=== PATIENT | female | born 2005 | race Caucasian/White ===

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

== ENCOUNTER → 2023-05-02 | Outpatient (CLI) | payer OTHER, SELFPAY ==
[2023-05-02 13:33] LABS: Hepatitis B Surface Antibody Non-Reactive; Rubella IgG Reactive (Nonreactive)
[2023-05-03 11:08] LABS: Mumps Antibody,IgG 57.8 AU/mL (Immune >10.9); Rubeola IgG Ab > 300.0 AU/mL (Immune >16.4); V-Zoster IgG (Immunity) < 135 index (Immune >165)
== END | disposition home or self-care (01) ==
PROVIDERS: PCP Family Medicine; Visit Provider Nurse Practitioner Family
DX: Z00.00 Encounter for general adult medical examination without abnormal findings (principal); Z23 Encounter for immunization
CPT/HCPCS: 36415; 86706; 86735; 86762; 86765; 86787

== ENCOUNTER → 2024-10-08 | Outpatient (CLI) | payer MEDICAID, SELFPAY ==
[2024-10-08 15:35] LABS: Absolute Lymphocyte Count 1.85 X10^3/uL (0.83-4.51); Absolute Neutrophil Count 5.4 X10^3/uL (2.0-7.7); Basophil# 0.03 X10^3/uL; Basophil% 0.4 % (0-1); Eosinophil# 0.24 X10^3/uL; Eosinophils% 2.9 % (0-5); Hematocrit 37.9 % (37-47); Hemoglobin 13.1 g/dL (12.0-15.0); Lymphocyte # 1.85 X10^3/ul (0.83-4.51); Lymphocyte % 22.4 % (19-41); Mean Corp Hgb Conc 34.6 g/dL (32-36); Mean Corpuscular Hgb 31.6 pg (27.0-32.0); Mean Corpuscular Volume 91.5 fL (81-99); Mean Platelet Vol. 10.5 fl (6.2-12.0); Monocyte% 7.3 % (0-10); NRBC Flagged by Analyzer 0 % (0-5); Neutrophil # 5.41 X10^3/uL (2.7-7.7); Neutrophil % 65.4 % (47-70); Platelet Count 241 K/mm3 (150-450); RBC Distribution Width CV 12.6 % (11.6-14.6); RBC Distribution Width SD 42.3 fl (35.1-43.9); Red Blood Count 4.14 M/mm3 (4.2-5.4); White Blood Count 8.3 K/mm3 (4.4-11.0)
[2024-10-08 16:16] LABS: Vitamin B12 523 pg/mL (211-911); Vitamin D,25 Hydroxy 25.9 ng/mL
[2024-10-08 16:22] LABS: ALB/GLOB Ratio 1.2 RATIO (0.9-2.4); AST(SGOT) 17 U/L (15-37); Alanine Aminotransfer ALT/SGPT 21 U/L (13-56); Albumin, Serum 4.2 g/dL (3.2-5.0); Alkaline Phosphatase 46 U/L (45-117); Anion Gap 7 (5-15); BUN 10 mg/dL (7-18); BUN/Creat Ratio 12.4 RATIO (10-20); Calcium,Total 9.1 mg/dL (8.5-10.1); Chloride 106 mmol/L (98-107); Cholesterol 166 mg/dL (200); Creatinine, Serum 0.81 mg/dL (0.55-1.02); EST Glomerular Filtration Rate 95 mL/min (>60); Est Glom Filt Rate - Afr Amer 115 mL/min (>60); Globulin 3.4 g/dL (2.2-4.2); Glucose 88 mg/dL (74-106); High Density Lipoprotein 56 mg/dL; Potassium 3.6 mmol/L (3.5-5.1); Protein, Total 7.6 g/dL (6.4-8.2); Sodium Level 137 mmol/L (136-145); T4 Free Direct 1.07 ng/dL (0.76-1.46); Thyroid Stim Hormone (TSH) 0.855 uIU/mL (0.358-3.740); Triglycerides 46 mg/dL; Very Low Density Lipoprotein 9 mg/dL (5-40)
== END | disposition home or self-care (01) ==
LOC: MTLAB 12:36
PROVIDERS: PCP Family Medicine; Referring Provider Nurse Practitioner Family; Visit Provider Nurse Practitioner Family
DX: Z00.01 Encounter for general adult medical examination with abnormal findings (principal); R53.83 Other fatigue
CPT/HCPCS: 36415; 80053; 80061; 82306; 82607; 84439; 84443; 85025

== ENCOUNTER 2024-11-20 18:12 | Emergency (ER) | payer MEDICAID, SELFPAY ==
[2024-11-20 18:13] VITALS: BP 142/95; PULSE 82; RESP 16; TEMP 37.1; O2SAT 99; BMI 25.4
--- NOTE | 2024-11-20 18:31 | EKG12_ITS ---
Test Reason : CP Blood Pressure : */* mmHG Vent. Rate : 84 BPM Atrial Rate : 84 BPM P-R Int : 144 ms QRS Dur : 78 ms QT Int : 384 ms P-R-T Axes : 53 72 46 degrees QTcB Int : 453 ms Normal sinus rhythm Normal ECG Confirmed by Edson Cast ([id number]), advertising editor ANDERS FAIRCHILD ([id number]) on 11/21/2024 9:37:51 AM Referred By: Nash Godfrey Confirmed By: Edson Cast
--- NOTE | 2024-11-20 18:38 | ED.VIS.CHEST ---
HPI History of Present Illness Chief Complaint: Chest Pain Detail of Chief Complaint: Chest pain upon awakening Sunday morning and lasted the entire day Informant: patient Onset/Context/Timing Onset: Today and Days (Sunday morning first episode) Activity at onset: sudden Timing: Intermittent and Lasts (Hours) Quality: Positive for Pressure Location: Substernal Current Severity: Moderate Maximum Severity: Severe Worsened By: Nothing Relieved By: Nothing Associated Symptoms: Positive for Dyspnea and Fever (Subjective); Negative for Nausea, Vomiting, Diaphoresis, Cough, Lightheadedness, Acid Reflux or Palpitations Narrative Narrative: Patient is a 19-year-old female. She is on control pills. She has no significant past medical history. She presents because of chest pain. First episode was Sunday upon awakening and lasted for hours. She had no symptoms on Sunday. Upon awakening this morning she had chest pressure. She does report shortness of breath with activity and today reports pain with breathing. She states she feels she is warmer than usual. She has not taken her temperature. She denies rhinorrhea, congestion, postnasal drainage and sore throat. She denies cough. She has no history of VTE. She denies leg pain, swelling discoloration. Her risk factor is subdermal hormone implant. There is no family history of blood clots. There is no family history of coronary artery disease at young age. Prior Similar Symptoms: No Recent Illness/Hospitalization: No CVD Risk Factors: Negative for Hypertension, Diabetes, Hypercholesterolemia, Family History 1' </=55 or Smoking PE Risk Factors: Negative for Recent Travel/Surgery, Recent Immobilization, Prior DVT or PE, Cancer or OCP + Smoking + >/=35 TAD Risk Factors: Negative for Marfan's Syndrome, Hypertension or Family History PFSH PFSH Medical History no medical history no medical history Home Medications ?Medication ?Instructions ?Recorded ?Last Taken ?Type etonogestrel 68 mg subdermal 1 implant subdermal ONCE 03/27/24 Unknown History implant (Nexplanon) Allergy/AdvReac Type Severity Reaction Status Date / Time No Known Allergies Allergy Verified 11/20/24 18:12 Family History Grandfather Myocardial infarction Grandfather Myocardial infarction Mother Hypertension Father Hypertension Surgical History [place] teeth extracted Hx of tonsillectomy Social History adopted: No sexually active: Yes Smoking Status: Never smoker alcohol intake: never caffeine: Yes seatbelt use: always do you feel safe at home: Yes additional social history: Boyfriend - Carlos ROS ROS ED Constitutional Constitutional ED: Reports fever(s) and subjective; Denies chills or sweats Eyes Eyes: Reports none ENT ENT ED: Denies ear pain, rhinorrhea or sore throat Cardiovascular Cardiovascular: Reports as per HPI; Denies orthopnea or paroxysmal nocturnal dyspnea Respiratory/Chest Respiratory/Chest: Reports dyspnea and dyspnea on exertion; Denies cough, orthopnea, paroxysmal nocturnal dyspnea or sputum Gastrointestinal Gastrointestinal: Reports other Details: She denies intolerance to greasy or fried foods. There is no family history of cholelithiasis. ; Denies abdominal pain, constipation, diarrhea, melena, nausea or vomiting Musculoskeletal Musculoskeletal: Denies arthralgias, back pain or myalgias Integumentary Denies rash Neurologic Neurologic: Denies headache(s) or paresthesias Psychiatric Psychiatric: Denies anxiety Endocrine Endocrinology: Denies cold intolerance or heat intolerance Hematologic/Lymphatic Hematologic/Lymphatic: Denies easy bleeding or easy bruising EXAM Physical Exam Const Vital Signs: 11/20/24 18:13 11/20/24 19:12 Temperature 98.8 F Temperature Source Oral Pulse Rate 82 Respiratory Rate 16 Respiratory Effort Normal Non-Labored Blood Pressure 142/95 H Blood Pressure Mean 110 Pulse Ox 99 Oxygen Delivery Method Room Air Positive well nourished and well developed General Appearance ED: well developed and NAD; Negative for pallor HEENT Reports moist mucous membranes normocephalic and atraumatic Eyes PERRL and EOMs intact bilaterally General Eye ED: Negative for pale conjunctiva or scleral icterus Neck no lymphadenopathy, supple and no JVD Chest Wall inspection of chest normal and palpation of chest normal Resp normal respiratory effort and clear to auscultation bilaterally Cardio regular rate, regular rhythm, S1 normal heart sound, S2 normal heart sound and no murmurs GI normal to inspection, nondistended, normoactive bowel sounds, soft to palpation, non-tender, non-distended and no masses; Negative for hepatosplenomegaly GI Narrative: Negative clinical Quinn sign. Back/Spine Back/Spine Narrative: Inspection of the back is normal. Extremity Extremity Narrative: There is no asymmetry, swelling, discoloration, leg vein distention, palpable cords or tenderness along the distribution of the deep venous system. There is no clubbing or cyanosis. Neuro oriented x3 and CN's II-XII intact bilaterally Sensorium / Orientation: awake and alert Psych mental status grossly normal Skin no rashes or lesions noted and no wounds General Skin Exam: Negative for jaundice or pallor MDM MDM MDM Narrative Medical decision making narrative: Patient with chest pain. This may represent peptic ulcer disease/GERD, pulmonary pathology especially with pleuritic component, doubt cardiac. Symptoms not consistent with myocarditis or pericarditis either. Patient is noted to have an elevated blood pressure. Is no history of elevated blood pressure. Because she is not PERC negative D-dimer was obtained. Ordered chest x-ray, EKG and troponin. Only 1 troponin was ordered since she has had pain for more than 1 day and 4 hours at a time. Lab Data Attestation: I reviewed the patient's lab results. Lab results narrative: CBC is unremarkable. Basic metabolic panel reveals a potassium of 3.0. Troponin is less than 3. Serum test is negative. D-dimer is normal at 0.28. Labs: Laboratory Results - last 24 hr 11/20/24 11/20/24 18:26 18:38 WBC 8.0 RBC 3.84 L Hgb 12.0 Hct 34.7 L MCV 90.4 MCH 31.3 MCHC 34.6 RDW Std Deviation 41.2 RDW Coeff of Lesa 12.6 Plt Count 277 MPV 9.7 Immature Gran % (Auto) 0.400 Neut % (Auto) 52.4 Lymph % (Auto) 34.7 [place] % (Auto) 9.3 Eos % (Auto) 2.9 Baso % (Auto) 0.3 Absolute Neuts (auto) 4.2 Absolute Lymphs (auto) 2.77 Nucleated RBC % 0 D-Dimer Quant (PE/DVT) 0.28 Sodium 138 Potassium 3.0 L Chloride 104 Carbon Dioxide 26.0 Anion Gap 8 BUN 9 Creatinine 0.81 Estim Creat Clear Calc 107.56 Est GFR (MDRD) Af Amer 115 Est GFR (MDRD) Non-Af 95 BUN/Creatinine Ratio 11.1 Glucose 88 Calcium 9.4 Troponin I High Sens < 3 L Serum , Qual NEGATIVE Radiography Chest X-Ray - ED: 2 View, Read by ED Physician (Interpreted by me at 1853.), Normal, Heart, Lungs, Mediastinum, Bony Structures and No Acute Disease Differential Diagnosis Chest pain/SOB: pulmonary embolism Reason(s) PE less likely: Positive for Well's <3, D-Dimer negative, not tachycardic and not hypoxic, ACS ACS: Positive for no evidence of ACS based on cardiac biomarkers, EKG without ischemia and history not suggestive of ischemia pain, pneumothorax Reason(s) pneumothorax less likely: Positive for bilateral breath sounds and 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 Patient be discharged to home. She was asked if she had any questions and she did not. Discharge Plan Triage Chief Complaint: Chest Pain ED Provider: Nash Godfrey Dx/Rx/DC Orders Clinical Impression: Chest pressure, Dyspnea, Elevated blood-pressure reading without diagnosis of hypertension Instructions: ED Chest Pain, Noncardiac, ED Chest Pain, Uncertain Cause, ED Hypertension, To Be Confirmed Prescriptions: No Action Nexplanon 68 mg implant 1 implant subdermal ONCE Rx Instructions: as a single dose Primary Care Provider: Mariaelena Mustafa Referrals: Mariaelena Mustafa MD [Primary Care Provider] - 3-5 Days if not improving Activity Restrictions/Additional Instructions: Recommend having your blood pressure checked in 1 to 2 weeks. Print Language: Turkmen Disposition Disposition: Home, Self Care
--- NOTE | 2024-11-20 18:45 | RAD_ITS ---
INDICATION: Chest pain with pleuritic component EXAMINATION/TECHNIQUE: X-RAY - XR Chest 2 Views COMPARISON: None. FINDINGS: The lungs are clear. The cardiomediastinal silhouette is unremarkable. No pleural effusion or pneumothorax. No acute osseous abnormalities. RAD/Chest PA and Lateral IMPRESSION: No acute radiographic abnormalities. Electronically Signed: Richard Olmedo MD at 19:29 EST ,
[2024-11-20 18:49] LABS: Absolute Lymphocyte Count 2.77 X10^3/uL (0.83-4.51); Absolute Neutrophil Count 4.2 X10^3/uL (2.0-7.7); Basophil# 0.02 X10^3/uL; Basophil% 0.3 % (0-1); Eosinophil# 0.23 X10^3/uL; Eosinophils% 2.9 % (0-5); Hematocrit 34.7 % (37-47); Lymphocyte # 2.77 X10^3/ul (0.83-4.51); Lymphocyte % 34.7 % (19-41); Mean Corp Hgb Conc 34.6 g/dL (32-36); Mean Corpuscular Hgb 31.3 pg (27.0-32.0); Mean Corpuscular Volume 90.4 fL (81-99); Mean Platelet Vol. 9.7 fl (6.2-12.0); Monocyte# 0.74 X10^3/uL; Monocyte% 9.3 % (0-10); NRBC Flagged by Analyzer 0 % (0-5); Neutrophil # 4.19 X10^3/uL (2.7-7.7); Neutrophil % 52.4 % (47-70); Platelet Count 277 K/mm3 (150-450); RBC Distribution Width CV 12.6 % (11.6-14.6); RBC Distribution Width SD 41.2 fl (35.1-43.9); Red Blood Count 3.84 M/mm3 (4.2-5.4)
[2024-11-20 18:59] LABS: Internal QC Validated? YES +Cl - CLEAR BKGD; Pregnancy, Serum, hCG Quali. NEGATIVE Negative
[2024-11-20 19:08] LABS: D-Dimer Quantitative (DVT/PE) 0.28 FEU/ug/m (0.27-0.49)
[2024-11-20 19:10] LABS: Anion Gap 8 (5-15); BUN 9 mg/dL (7-18); BUN/Creat Ratio 11.1 RATIO (10-20); Calcium,Total 9.4 mg/dL (8.5-10.1); Chloride 104 mmol/L (98-107); Creatinine, Serum 0.81 mg/dL (0.55-1.02); EST Glomerular Filtration Rate 95 mL/min (>60); Est Glom Filt Rate - Afr Amer 115 mL/min (>60); Estimated Creatinine Clearance 107.56 ml/min; Glucose 88 mg/dL (74-106); Sodium Level 138 mmol/L (136-145); Troponin-I HS < 3 pg/mL (3.0-54.0)
[2024-11-20 19:41] VITALS: BP 121/70; PULSE 78; RESP 17; TEMP 37.1; O2SAT 100
== END 2024-11-20 19:43 | disposition home or self-care (01) ==
PROVIDERS: Emergency Provider Emergency Medicine; PCP Family Medicine; Referring Provider Emergency Medicine; Visit Provider Emergency Medicine
DX: R07.89 Other chest pain (principal); R06.09 Other forms of dyspnea; R03.0 Elevated blood-pressure reading, without diagnosis of hypertension; R50.9 Fever, unspecified
CPT/HCPCS: 71046; 80048; 84484; 84703; 85025; 85379; 93005; 99285; A4216

== ENCOUNTER → 2025-06-12 | Outpatient (CLI) | payer MEDICAID, SELFPAY | END | disposition home or self-care (01) | LOC: MTRAD 11:24 | PROVIDERS: PCP Family Medicine; Referring Provider Nurse Practitioner Family; Visit Provider Nurse Practitioner Family | DX: M25.551 Pain in right hip (principal); M54.31 Sciatica, right side | CPT/HCPCS: 72110; 73502 ==